=== PATIENT | female | born 1960 | race Hispanic/Latino ===

== ENCOUNTER 2018-10-19 16:20 | Emergency (ER) | payer OTHER ==
[2018-10-19 16:20] VITALS: BMI 21.1
[2018-10-19] MEDS ORDERED: Sodium Chloride 0.9% 1,000 ML IV ONE (17:19)
[2018-10-19] MEDS ORDERED: Iohexol 240 (50 ml) PO STA (17:19)
--- NOTE | 2018-10-19 17:22 | C.PDOC ---
History Of Present Illness Patient with history of IBS with constipation c/o right sided abdominal pain associated with 1-2 episodes of soft stool daily for the past 3 days. She denies associated nausea or vomiting and has no fever or chills. She has been able to eat without difficulty. Her daughter and granchildren live with her and recently had symptoms of a "GI virus". She also has noticed a foul smelling urine for the past several days. Time Seen by Provider: 10/19/18 17:14 Chief Complaint (Nursing): Abdominal Pain History Per: Patient History/Exam Limitations: no limitations Onset/Duration Of Symptoms: Days (3) Current Symptoms Are (Timing): Still Present Severity: Moderate Location Of Pain/Discomfort: RLQ Radiation Of Pain To:: None Quality Of Discomfort: Cramping, Stabbing Associated Symptoms: denies: Fever, Chills, Nausea, Vomiting, Back Pain Exacerbating Factors: None Alleviating Factors: None Past Medical History Vital Signs: Last Vital Signs Temp 98.1 F 10/19/18 16:41 Pulse 93 H 10/19/18 16:41 Resp 18 10/19/18 16:41 BP 151/92 H 10/19/18 16:41 Pulse Ox 97 10/19/18 16:41 - Medical History PMH: COPD Other PMH: IBS with constipation Surgical History: Cholecystectomy Family History: States: No Known Family Hx - Social History Hx Tobacco Use: Yes Hx Alcohol Use: No Hx Substance Use: No - Immunization History Hx Tetanus Toxoid Vaccination: No Hx Influenza Vaccination: No Hx Pneumococcal Vaccination: No Review Of Systems Constitutional: Negative for: Fever, Chills Cardiovascular: Negative for: Chest Pain Respiratory: Negative for: Cough, Shortness of Breath Gastrointestinal: Positive for: Abdominal Pain, Diarrhea (loose stool). Negative for: Nausea, Vomiting Genitourinary: Negative for: Dysuria, Frequency, Pelvic Pain Musculoskeletal: Negative for: Back Pain Physical Exam - Physical Exam Appears: Well, No Acute Distress Skin: Normal Color, Dry Eye(s): bilateral: Normal Inspection Oral Mucosa: Moist Chest: Symmetrical Cardiovascular: Rhythm Regular Respiratory: Normal Breath Sounds Gastrointestinal/Abdominal: Bowel Sounds, Soft, Tenderness (RLQ), No Distention, No Guarding, No Rebound Neurological/Psych: Oriented x3, Normal Speech, Normal Cognition ED Course And Treatment - Laboratory Results Result Diagrams: 10/19/18 18:18 10/19/18 18:18 Lab Interpretation: Abnormal Interpretation Of Abnormal: Urine WBC 12 with moderate bacteria O2 Sat by Pulse Oximetry: 97 Pulse Ox Interpretation: Normal - Other Rad CT A/P X-Ray: Viewed By Me, Read By Radiologist Interpretation: EXAM: CT Abdomen and Pelvis with IV contrast. CLINICAL HISTORY: RUQ PAIN. TECHNIQUE: Axial computed tomography images of the abdomen and pelvis with intravenous contrast. 0.00 mGy-cm. CONTRAST: With; OMNI 240 & OMNI 350 100MLS. COMPARISON: None provided. FINDINGS: LUNG BASES: The lung bases appear clear. No pleural effusions are seen. LIVER: Normal in size. A 1.1 cm round hypodense zone is seen in the anterior superior left hepatic lobe which is thought likely consistent with a cyst. Consideration could be given to correlation with hepatic ultrasound evaluation. No identification of hepatic mass. GALLBLADDER AND BILE DUCTS: There has been prior cholecystectomy. No biliary ductal dilatation is evident. PANCREAS: Unremarkable. SPLEEN: Unremarkable. ADRENAL GLANDS: Unremarkable. KIDNEYS, URETERS, AND BLADDER: The kidneys appear within normal limits. There is no hydronephrosis or hydroureter. No urinary calculi are seen. STOMACH AND BOWEL: Unremarkable appearance of the stomach. No evidence of bowel obstruction. There is apparent mild mucosal wall thickening involving the jejunal small intestinal tract suspicious for mild non-specific enteritis. In the coronal reconstructed images sequence; specifically images 58-59; there is demonstration of a 3 cm segment of annular narrowing involving the upper descending colon. APPENDIX: No evidence of acute appendicitis on CT examination. PERITONEUM: No free fl uid. No free air. LYMPH NODES: No lymphadenopathy is evident. REPRODUCTIVE: Unremarkable as visualized. VASCULATURE: No evidence of abdominal aortic aneurysm. BONES: No aggressive appearing osseous lesion. No acute osseous pathology evident. IMPRESSION: 1. 3 cm segment of annular narrowing within the upper descending colon. Consideration could be given to correlation with lower endoscopic evaluation and/or air contrast enema evaluation. 2. Findings suggestive of nonspecific enteritis in the left sided small intestinal tract. 3. Status post cholecystectomy. 4. Suspected 1.1 cm hepatic cyst in the anterior superior left hepatic lobe. Correlation with hepatic ultrasound evalu ation could be considered. Reevaluation Time: 21:08 Reassessment Condition: Improved (No evidence of vomiting or diarrhea in ED. Patient is tolerating po.) Disposition Counseled Patient/Family Regarding: Studies Performed, Diagnosis, Need For Followup, Rx Given - Disposition Referrals: [facility] [Outside] Disposition: HOME/ ROUTINE Disposition Time: 21:09 Condition: STABLE Prescriptions: Ciprofloxacin [Cipro] 1 tab PO BID #10 tab Instructions: Urinary Tract Infections in Adults, Diarrhea in Adolescents and Adults Forms: [facility] (Czech) - Clinical Impression Clinical Impression: Enteritis, UTI (urinary tract infection)
[2018-10-19] MEDS ORDERED: Sodium Chloride 0.9% 1,000 ML ONE (17:43)
[2018-10-19] MEDS ORDERED: Iohexol 240 (50 ml) ONE (17:43)
[2018-10-19] MEDS ORDERED: Iohexol 350mg/ml 100 ML ONE (18:25)
[2018-10-19 18:36] LABS: BASO % 0.5 % (0.0-2.0); EOS # 0.1 K/uL (0.0-0.7); EOS % 2.3 % (0.0-4.0); HEMOGLOBIN 12.2 g/dL (11.0-16.0); LYMPH # 2.7 K/uL (1.0-4.3); MEAN CELL VOLUME 87.2 fL (81.0-99.0); MEAN CORPUSCULAR HEMOGLOBIN 28.1 pg (27.0-31.0); MEAN CORPUSCULAR HGB CONC 32.2 g/dL (33.0-37.0); MEAN PLATELET VOLUME 8.5 fL (7.2-11.7); MONO # 0.5 K/uL (0.0-0.8); MONO % 7.6 % (0.0-10.0); NEUT # 2.9 K/uL (1.8-7.0); NEUT % 46.6 % (50.0-75.0); NRBC % 0.1 % (0.0-2.0); RBC 4.34 Mil/uL (3.80-5.20); RED CELL DISTRIBUTION WIDTH 14.2 % (11.5-14.5)
[2018-10-19 18:39] LABS: WHITE BLOOD COUNT 6.3 K/uL (4.8-10.8)
[2018-10-19 18:42] LABS: SQUAMOUS EPITHIAL 2 /hpf (0-5); URINE BACTERIA OCC (<OCC); URINE BILIRUBIN NEGATIVE (NEGATIVE); URINE BLOOD 1+ (NEGATIVE); URINE CLARITY Clear (Clear); URINE COLOR Yellow (YELLOW); URINE GLUCOSE (UA) NORMAL (Normal); URINE LEUKOCYTE ESTERASE 2+ Leu/uL (Negative); URINE PROTEIN NEGATIVE (NEGATIVE); URINE UROBILINOGEN NORMAL mg/dL (0.2-1.0)
[2018-10-19 18:54] LABS: ALB/GLOB RATIO 1.3 (1.0-2.1); ALBUMIN 4.5 g/dL (3.5-5.0); ALT/SGPT 24 U/L (9-52); AST/SGOT 40 U/L (14-36); BLOOD UREA NITROGEN 10 mg/dL (7-17); GFR NON-AFRICAN AMERICAN > 60; LIPASE 53 U/L (23-300)
[2018-10-19 21:00] VITALS: O2SAT 97
[2018-10-19 21:23] VITALS: BP 137/85; PULSE 87; RESP 18; TEMP 98.5
--- NOTE | 2018-10-20 08:48 | CT ---
PROCEDURE: CT Abdomen and Pelvis with oral and IV contrast. HISTORY: abd pain COMPARISON: None available TECHNIQUE: Contiguous axial images of the abdomen and pelvis. Oral and IV contrast was administered. Coronal and Sagittal reformats generated and reviewed. Contrast dose: 100 mL Omnipaque 350 Radiation dose: Total exam DLP = 234.42 mGy-cm. This CT exam was performed using one or more of the following dose reduction techniques: Automated exposure control, adjustment of the mA and/or kV according to patient size, and/or use of iterative reconstruction technique. FINDINGS: LOWER THORAX: No visible consolidation, pleural effusion, or pneumothorax. LIVER: Too small to characterize 7 mm hepatic dome hypodensity, statistically likely cyst or hemangioma. GALLBLADDER AND BILE DUCTS: Cholecystectomy. PANCREAS: Unremarkable. SPLEEN: Unremarkable. ADRENALS: Unremarkable. KIDNEYS AND URETERS: The kidneys enhance symmetrically. No hydronephrosis or obstructing renal calculus. BLADDER: The urinary bladder appears unremarkable. REPRODUCTIVE: Uterus is present. Suspect right ovarian cyst measuring up to 3 cm. Recommend further evaluation with pelvic ultrasound. APPENDIX: The appendix appears within normal limits of caliber. No secondary signs of acute appendicitis. BOWEL: The stomach is nondistended. The bowel loops appear within normal limits of caliber without evidence of intestinal obstruction. Within the left colon there is a 3 cm segment of annular narrowing (coronal image 59). Recommend further evaluation including colonoscopy to exclude possibility of malignant neoplasm. Markedly thick-walled small bowel loops within the left mid to upper quadrant. PERITONEUM: No significant free fluid. No definite free air. LYMPH NODES: No bulky lymphadenopathy identified. VASCULATURE: No aortic aneurysm. No atherosclerotic calcification or mural plaque present. BONES: No acute osseous abnormality is detected. OTHER FINDINGS: None. IMPRESSION: 3 cm segment of annular narrowing involving the left colon. Recommend further evaluation including colonoscopy to exclude possibility of malignant neoplasm. Markedly thick-walled small bowel loops within the left mid to upper quadrant. Indeterminate etiology. Correlate clinically. Considerations include infectious, inflammatory, neoplastic etiologies. Probable 3 cm right ovarian cyst. Outpatient pelvic ultrasound may be considered. Too small to characterize 7 mm hepatic dome hypodensity, statistically likely cyst or hemangioma. Cholecystectomy. Preliminary impression was provided by [employer]. Study marked for PA review.
== END 2018-10-19 21:23 | disposition home or self-care (01) ==
LOC: C.ER 16:20
DX: K52.9 Noninfective gastroenteritis and colitis, unspecified (principal); N39.0 Urinary tract infection, site not specified
CPT/HCPCS: 74177; 80053; 81001; 83690; 85025; 87086; 96361; 96374; 99285; J1885; J7030; Q9966; Q9967